=== PATIENT | male | born 1965 | race Caucasian/White ===

== ENCOUNTER 2018-04-30 10:22 | Inpatient (IN) | payer OTHER ==
[~2018-04-30] VITALS: Ht 152.4 cm; Wt 86.2 kg
[2018-04-30 10:38] VITALS: BP 136/65
[2018-04-30] MEDS ORDERED: NEURONTIN600 MG PO (10:42)
[2018-04-30] MEDS ORDERED: ACYCLOVIR 400400 MG PO (10:42)
[2018-04-30 11:24] LABS: HEMOGLOBIN 13.4 gm/dL (14.0-18.0); MCH 32.4 pg (26.0-34.0); MCHC 33.4 g/dL (28.0-37.0); NUCLEATED RBCS 0 /100WBC; PLATELET COUNT* 172 thou/uL (150-400); RBC 4.12 mil/uL (4.50-6.00); RDW-CV 13.6 % (10.5-14.5); WBC 5.3 thou/uL (4.0-11.0)
[2018-04-30 11:33] LABS: CALCIUM 8.4 mg/dL (8.5-10.1); CREATININE 1.2 mg/dL (0.6-1.3); POTASSIUM 4.5 mmol/L (3.5-5.1)
[2018-04-30 11:38] LABS: ALBUMIN 3.7 g/dL (3.4-5.0); TOTAL BILIRUBIN 0.2 mg/dL (<0.1-1.0)
[2018-04-30 11:46] LABS: ABSOLUTE BASOPHILS 0.1 thou/uL (0.0-0.2); ABSOLUTE EOSINOPHILS 0.4 thou/uL (0.0-0.7); ABSOLUTE LYMPHOCYTES 0.9 thou/uL (0.8-5.3); ABSOLUTE MONOCYTES 0.2 thou/uL (0.0-1.2); ABSOLUTE NEUTROPHILS 3.7 thou/uL (1.6-8.1); ATYPICAL LYMPHS 6 %; PLATELET ESTIMATE ADEQUATE
[2018-04-30 13:25] LABS: CSF CLARITY CLEAR; CSF COLOR COLORLESS; CSF RBC 66 /mm3; VOLUME 12 ml
[2018-04-30 13:26] LABS: CSF WBC 37 /mm3 (0-10)
[2018-04-30 13:29] LABS: CSF LYMPHOCYTES 60 % (40-80); CSF MONONUCLEARS 38 % (15-45); CSF POLYS 2 % (0-6)
[2018-04-30 14:23] VITALS: BP 140/47
[2018-04-30 14:47] LABS: CSF GLUCOSE < 1 mg/dl (40-70); CSF PROTEIN < 6 mg/dl (15-45)
[2018-04-30 15:00] VITALS: BP 110/45
[2018-04-30 20:00] VITALS: BP 113/52
[2018-04-30 23:49] VITALS: BP 89/49
[2018-04-30 23:51] VITALS: BP 95/45
[2018-05-01 04:00] VITALS: BP 125/40
[2018-05-01 08:00] VITALS: BP 104/40
[2018-05-01 13:01] VITALS: BP 128/64
[2018-05-01 19:38] VITALS: BP 129/71
[2018-05-01 23:11] VITALS: BP 132/63
[2018-05-02 04:00] VITALS: BP 120/70
[2018-05-02 10:54] VITALS: BP 129/68
[2018-05-02 12:00] VITALS: BP 115/65
[2018-05-02] MEDS ORDERED: FAMCYCLOVIR 50500 M1 PO (12:43)
[2018-05-02 13:11] VITALS: BP 115/65
[2018-05-02] MEDS ORDERED: PERCOCET 7.5-31 EACH PO (14:13)
--- NOTE | 2018-05-02 18:27 | CON ---
[address] [address] CONSULTATION Name: TEA HAAS Room: [address] M.R.#: [id number] Admission: 04/30/18 Attend Phys: Néstor Salomon Discharge: 05/02/18 Date of : 67 Report #: [id number] THIS REPORT FOR: //name// CC: [facility] physician/PCP Javier Castillo DATE OF SERVICE: 05/01/2018 CONSULTATION: Infectious diseases. HISTORY OF PRESENT ILLNESS: Dimitry Haas is a 53-year-old white male who is admitted through the ER on 04/30 with aseptic meningitis. The patient said he had flu-like syndrome in February. He has been feeling weak and uncomfortable ever since. Beginning approximately 04/28, he developed shingles on his right chest, approximately T7 distribution. He developed severe headache with this. The pain created nausea and vomiting. The patient had some fever, but did not measure this. The patient went to his primary care doctor who referred him to the ER for a lumbar puncture. This was abnormal, and the patient was admitted with aseptic meningitis. PAST HISTORY: Significant for the recent flu. He said he was in excellent health until approximately 6 years ago when he was diagnosed as "a spider bite" on his left upper thigh. This became a deep wound down to the muscle, required 3-months followup in the wound care center. The patient says ever since that infection, he seems to be very susceptible to all kinds of infections, particularly in the skin. He says it was bad if he changed clears. He was a forester, but the minor trauma from walking in the [place] would always make him very sick and take a long time to heal. The patient otherwise is in good health. ALLERGIES: He has no medical allergies. FAMILY HISTORY: Noncontributory. SOCIAL HISTORY: The patient is . 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 He does smoke cigarettes, but is interested in tobacco cessation, particularly with his recurring skin infections. He was counseled appropriately. The patient denies use of alcohol or drugs. Denies HIV risk factors, but is not against testing because of his current condition. REVIEW OF SYSTEMS: Positive for fevers, chills, weakness, malaise. ENT: The patient had a holocranial headache, which is markedly improved. He has received morphine, but says he does not like the way this makes him feel. He denies any sinus congestion or drainage. No sore throat or trouble swallowing. The patient denies cough, chest pain, shortness of breath. Nausea and vomiting have resolved. No abdominal pain. His bowels are fine. [place] [address] CONSULTATION Name: TEA HAAS Room: [address] [place] .R.#: [id number] Admission: 04/30/18 Attend Phys: Néstor Salomon Discharge: 05/02/18 Date of : 67 Report #: [id number] patient notes the painful rash on his right chest, which is improved. PHYSICAL EXAMINATION: GENERAL: The patient appears his stated age, alert, oriented, comfortable, not in any distress. VITAL SIGNS: Show maximum measured temperature in the hospital 98.9. SKIN: Has rash, which is very typical of varicella zoster in about a T7 right-sided distribution. He has papules, crusted vesicles on an erythematous base going from the midline in the back to the midline in the front. These lesions were very painful, but markedly improved. No new blisters appear to be forming. No other skin rash outside this distribution. ENT: Negative. The patient is mentally clear. No photophobia. NECK: Not stiff. HEART: Sounds normal. LUNGS: Clear. ABDOMEN: Belly thin, soft, not tender. EXTREMITIES: Unremarkable. LABORATORY DATA: White count is 5.3, hemoglobin 13.4, platelet 172,000. Electrolytes, BUN, creatinine, glucose are normal. Liver function tests are normal. Spinal fluid analysis showed 37 white cells, 98% lymphocytes. Unmeasurably low glucose. Protein was low at less than 6. In summary, we have a 53-year-old gentleman who is generally in good health, but he seemed to have recurring infections. He has typical shingles about 5 days old and then develops aseptic meningitis with lymphocytosis and the spinal fluid. The spinal fluid has a measure be low glucose and protein, which seems very unusual. I wonder if this may represent a lab error. The patient clearly does not have a bacterial meningitis. He has relatively low white count and 98% lymphocytes and monocytes. He has shown remarkable improvement with 24 hours of hospitalization with antibiotics, antivirals and steroids as well as lumbar puncture. All this is typical of aseptic meningitis more than bacterial meningitis. At this time, I suggest that we discontinue the isolation. We can discontinue all the antibiotics except for acyclovir. The patient does not need steroids. I would like to try to change his morphine to oral Percocet. ASSESSMENT AND PLAN: With the patient is comfortable on Percocet, I think it would be reasonable for him to go home on oral Percocet and oral acyclovir 800 mg q.i.d. or Famvir 1000 mg t.i.d. to complete 5 days of high dose antiviral therapy. I am not concerned about a bacterial meningitis. We can send the spinal fluid for varicella PCR as well as a viral spinal panel. Cultures should become available tonight and tomorrow to confirm the lack [place] [address] CONSULTATION Name: TEA HAAS Room: [address] [place] ..#: [id number] Admission: 04/30/18 Attend Phys: Néstor Saolmon Discharge: 05/02/18 Date of : 67 Report #: [id number] I appreciate the opportunity of input in the care of the patient. I will be happy to see him tomorrow if he is still in the hospital. If he does well in terms of pain and nausea, when the Solu-Medrol wears off, probably reasonable for him to go home on oral antiviral and supportive therapy. <ELECTRONICALLY SIGNED> By: Ady Loja MD 05/02/18 [id number] Loja MD /nt
[2018-05-03 14:06] LABS: HIV-1/HIV-2 ANTIBODY Non Reactive (Non Reactive)
[2018-05-04 21:11] LABS: HSV 1 DNA Negative (Negative); HSV 2 DNA Negative (Negative)
== END 2018-05-02 14:43 | disposition home or self-care (01) | DRG 866 ==
LOC: M.ERS 10:22 → M.2W 13:15 → M.TBA-ER 13:15 → M.2W 14:20
PROVIDERS: Emergency Medicine Emergency Medical Services; Internal Medicine Infectious Disease; ADMIT Internal Medicine
PROC: 009U3ZX Drainage of Spinal Canal, Percutaneous Approach, Diagnostic (ICD-10-PCS; principal; 2018-04-30)
DX: B01.0 Varicella meningitis (principal); F17.210 Nicotine dependence, cigarettes, uncomplicated; Z86.14 Personal history of Methicillin resistant Staphylococcus aureus infection; Z23 Encounter for immunization

== ENCOUNTER 2018-05-07 14:26 | Emergency (ER) | payer OTHER ==
[~2018-05-07] VITALS: Ht 172.7 cm; Wt 74.8 kg
[~2018-05-07 14:26] MED LIST: ACYCLOVIR 400400 MG PO; FAMCYCLOVIR 50500 M1 PO; NEURONTIN600 MG PO; PERCOCET 7.5-31 EACH PO
[2018-05-07 15:37] LABS: HEMOGLOBIN 13.8 gm/dL (14.0-18.0); MCH 32.5 pg (26.0-34.0); MCHC 33.8 g/dL (28.0-37.0); MCV 96.2 fL (80.0-100.0); MPV 7.8 fl. (7.2-11.1); NUCLEATED RBCS 0 /100WBC; PLATELET COUNT* 236 thou/uL (150-400); RBC 4.26 mil/uL (4.50-6.00); RDW-CV 13.5 % (10.5-14.5); WBC 7.4 thou/uL (4.0-11.0)
[2018-05-07 15:45] LABS: PROTIME 10.1 Seconds (9.20-11.50)
[2018-05-07 15:56] LABS: CALCIUM 8.6 mg/dL (8.5-10.1); CREATININE 1.1 mg/dL (0.6-1.3); POTASSIUM 4.4 mmol/L (3.5-5.1)
[2018-05-07 15:57] LABS: ABSOLUTE EOSINOPHILS 0.6 thou/uL (0.0-0.7); ABSOLUTE LYMPHOCYTES 1.6 thou/uL (0.8-5.3); ABSOLUTE MONOCYTES 0.7 thou/uL (0.0-1.2); ABSOLUTE NEUTROPHILS 4.5 thou/uL (1.6-8.1); ATYPICAL LYMPHS 3 %; PLATELET ESTIMATE ADEQUATE
[2018-05-07 16:00] LABS: ALBUMIN 3.6 g/dL (3.4-5.0); MAGNESIUM 1.8 mg/dL (1.8-2.4); PHOSPHORUS* 3.8 mg/dL (2.5-4.9); TOTAL BILIRUBIN 0.2 mg/dL (<0.1-1.0); TOTAL PROTEIN 6.9 g/dL (6.4-8.2)
[2018-05-07] MEDS ORDERED: IBUPROFEN 800800 MG PO (17:09)
[2018-05-07] MEDS ORDERED: NORCO 5-325 TA1 EACH PO (17:09)
[2018-05-07 17:28] VITALS: BP 119/65
== END 2018-05-07 17:32 | disposition home or self-care (01) ==
LOC: M.ERS 14:26
PROVIDERS: Personal Emergency Response Attendant
DX: R51 Headache (principal); R42 Dizziness and giddiness; F17.210 Nicotine dependence, cigarettes, uncomplicated